=== PATIENT | female | born 1995 | race Caucasian/White ===

== ENCOUNTER → 2018-04-23 13:55 | Emergency (ER) | payer OTHER ==
[~2018-04-23 13:55] MED LIST: Ketorolac INJ* 30 MG/ML 1 ML VIAL IV PUSH ONE; Metoclopramide IV* 5 MG/ML 2 ML VIAL IV ONE; NS 0.9% 1000 ML* 1,000 ML IV ONE; diPHENhydraMINE PO* 50 MG PO ONE
--- NOTE | 2018-04-23 14:13 | ED ---
Complex/Multi-Sys Presentation - HPI Summary HPI Summary: A 22 y/o F referred from [facility] presents to ED with constant, pounding MEREDITH onset 3 days ago. Associated sx: dizziness described as lightheadedness and spinning. Pt states she does not normally have MEREDITH or take IBP. She's been taking IBP for past three days with no relief. Denies neck pain. She notes having a mild cough and sore throat onset one week ago. She states not sleeping well due to the cough. She notes having to take a car to get to class because the walk up the slope was wearing her out. At [facility], her BP was low. Takes Atenolol for anxiety for past 5-6 months. - History Of Current Complaint Chief Complaint: EDFluSymptoms Time Seen by Provider: 04/23/18 14:06 Hx Obtained From: Patient Onset/Duration: Lasting Days, Still Present Timing: Constant Severity Currently: Moderate Severity Initially: Moderate Character: Throbbing - "pounding" Associated Signs And Symptoms: Positive: Dizziness, Headache, Cough. Negative: Other - pos: sore throat (resolved). neg: back pain - Allergies/Home Medications Allergies/Adverse Reactions: Allergies Allergy/AdvReac Type Severity Reaction Status Date / Time No Known Allergies Allergy Verified 04/23/18 18:17 PMH/Surg Hx/FS Hx/Imm Hx Previously Healthy: Yes Sensory History: Denies: Hx Deafness Opthamlomology History: Denies: Hx Legally Blind EENT History: Denies: Hx Deafness Neurological History: Denies: Hx Migraine Infectious Disease History: No Infectious Disease History: Denies: Traveled Outside the [place] in Last 30 Days - Family History Known Family History: Positive: Diabetes, Other - stroke - Social History Occupation: Student Lives: Dormitory/Roommates Alcohol Use: Weekly Hx Substance Use: No Smoking Status (MU): Never Smoked Tobacco Review of Systems Positive: Sore Throat - resolved Positive: Cough - resolved Negative: Arthralgia - neg: neck pain Neurological: Other - pos: dizziness Positive: Headache All Other Systems Reviewed And Are Negative: Yes Physical Exam - Summary Physical Exam Summary: Appearance: The patient is well-nourished in no acute distress and in no acute pain. Skin: The skin is warm and dry and skin color reflects adequate perfusion. HEENT: The head is normocephalic and atraumatic. The pupils are equal and reactive. The conjunctivae are clear and without drainage. Nares are patent and without drainage. Mouth reveals moist mucous membranes and the throat is without erythema and exudate. The external ears are intact. The ear canals are patent and without drainage. The tympanic membranes are intact. Neck: the neck is supple with full range of motion and non-tender. There are no carotid bruits. There is no neck vein distension. Respiratory: Chest is non-tender. Lungs are clear to auscultation and breath sounds are symmetrical and equal. Cardiovascular: Heart is regular rate and rhythm. There is no murmur or rub auscultated. There is no peripheral edema and pulses are symmetrical and equal. Abdomen: The abdomen is soft and non-tender. There are normal bowel sounds heard in all four quadrants and there is no organomegaly palpated. Musculoskeletal: There is no back tenderness noted. Extremities are non-tender with full range of motion. There is good capillary refill. There is no peripheral edema or calf tenderness elicited. Neurological: Patient is alert and oriented to person, place and time. The patient has symmetrical motor strength in all four extremities. Cranial nerves are grossly intact. Deep tendon reflexes are symmetrical and equal in all four extremities. Psychiatric: The patient has an appropriate affect and does not exhibit any anxiety or depression. Triage Information Reviewed: Yes Vital Signs On Initial Exam: Initial Vitals Temp Pulse Resp BP Pulse Ox 98.6 F 83 17 93/57 99 04/23/18 13:56 04/23/18 13:56 04/23/18 13:56 04/23/18 13:56 04/23/18 13:56 Vital Signs Reviewed: Yes - Damon Coma Scale Best Eye Response: 4 - Spontaneous Best Motor Response: 6 - Obeys Commands Best Verbal Response: 5 - Oriented Coma Scale Total: 15 Diagnostics - Vital Signs Vital Signs Temp Pulse Resp BP Pulse Ox 04/23/18 13:56 98.6 F 83 17 93/57 99 - Laboratory Result Diagrams: 04/23/18 15:24 04/23/18 15:24 Lab Statement: Any lab studies that have been ordered have been reviewed, and results considered in the medical decision making process. - CT BRAIN CT CT Interpretation: No Acute Changes - IMPRESSION: No evidence of intracranial mass or hemorrhage is noted. ED provider has reviewed this report. CT Interpretation Completed By: Radiologist Re-Evaluation - Re-Evaluation 1 Re-Evaluation Time: 17:49 Change: Unchanged Comment: Discussing results with pt. Will treat MEREDITH and reassess. Complex Multi-Symp Course/Dx Course Of Treatment: Ms. Spence presented to the emergency department with a headache of 3 days' duration. She was sent over from [place] with a concern that her blood pressure was low. Here her blood pressure is fine and she is nontoxic in appearance. Her laboratory work is unremarkable except for very slightly elevated CRP. CT shows no acute pathology. She was treated with a migraine cocktail of IV Benadryl, ketorolac, Reglan and 1 L normal saline with complete relief of her headache. I think this is a vascular headache I see no evidence for any other pathology. We discussed the efficacy of a lumbar puncture which I think is low and she declined. - Diagnoses Provider Diagnoses: Migraine headache Discharge - Sign-Out/Discharge Documenting (check all that apply): Patient Departure - DC - Discharge Plan Condition: Stable Disposition: HOME Patient Education Materials: Migraine Headache (ED) Referrals: No Primary Care Phys,NOPCP [Primary Care Provider] - [facility] [Outside] Additional Instructions: Please return to the ED if you experience new or worsening symptoms. Follow up with your primary care provider in 2-3 days. - Billing Disposition and Condition Condition: STABLE Disposition: Home - Attestation Statements Document Initiated by Maria Tibe: Yes Documenting Scribe: Marina Shah Provider For Whom Maria Tibe is Documenting (Include Credential): Dr. Sanju Garnett MD Scribe Attestation: I, Marina Shah scribed for Dr. Sanju Garnett MD on 04/23/18 at 1901. Scribe Documentation Reviewed: Yes Provider Attestation: The documentation as recorded by the Marina valles accurately reflects the service I personally performed and the decisions made by me, Dr. Sanju Garnett MD
[2018-04-23 15:31] LABS: ABS Basophils 0.1 10^3/ul (0-0.2); ABS Eosinophils 0.1 10^3/ul (0-0.6); ABS Lymphocytes 1.8 10^3/ul (1.0-4.8); ABS Monocytes 0.5 10^3/ul (0-0.8); ABS Neutrophils 5.7 10^3/ul (1.5-7.7); ABS Nucleated RBC 0 10^3/ul; Eosinophil % 1.7 % (0-6); Hematocrit 38 % (35-47); Hemoglobin 12.9 g/dl (12.0-16.0); Lymphocyte % 22.1 % (25-47); Mean Corpuscular HGB Conc 34 g/dl (31-36); Mean Corpuscular Hemoglobin 29 pg (27-31); Mean Corpuscular Volume 85 fL (80-97); Mean Platelet Volume 7.2 um3 (7.4-10.4); Nucleated Red Blood Cells % 0.1; Platelet Count 198 10^3/ul (150-450); Red Blood Count 4.45 10^6/ul (4.00-5.40); Red Cell Distribution Width 13 % (10.5-15); White Blood Count 8.3 10^3/ul (3.5-10.8)
[2018-04-23 15:49] LABS: EGFR Non-African American 98.5 (>60)
[2018-04-23 16:04] LABS: Urine Red Blood Cell Trace(0-2/hpf) (Absent); Urine White Blood Cell Trace(0-5/hpf) (Absent)
[2018-04-23 16:34] LABS: Urine Appearance Clear; Urine Blood Negative (Negative); Urine Color Yellow; Urine Ketones Negative (Negative); Urine Protein Negative (Negative); Urine Specific Gravity 1.016 (1.010-1.030); Urine Urobilinogen Negative (Negative)
--- NOTE | 2018-04-23 16:35 | RAD ---
Indication: Headaches. CT of the brain performed without IV contrast. Ventricular structures are midline. No midline shift is noted. The extra-axial spaces are unremarkable there is no evidence of intracranial mass or hemorrhage. No other high or low density lesions are identified. Mastoid air cells and paranasal sinuses are clear. IMPRESSION: No evidence of intracranial mass or hemorrhage is noted.
[2018-04-23 22:13] VITALS: BP 118/76
[2018-04-27 16:24] LABS: B garinii/B afzelii PCR Negative (Negative); B. miyamotoi PCR, B Negative (Negative)
== END | disposition home or self-care (01) ==
LOC: ED 13:55
DX: G43.909 Migraine, unspecified, not intractable, without status migrainosus (principal); R42 Dizziness and giddiness; R05 Cough; J02.9 Acute pharyngitis, unspecified
CPT/HCPCS: 36415; 70450; 80053; 81003; 82330; 83605; 84484; 85025; 86140; 87040; 87086; 87476; 87798; 96374; 96375; 99282; A9270-GY; J1885; J2765

== ENCOUNTER 2019-07-25 10:48 | Emergency (ER) | payer OTHER ==
[2019-07-25] MEDS ORDERED: NS 0.9% 1000 ML** 1,000 ML IV ONE ×3 (13:22→15:43)
[2019-07-25] MEDS ORDERED: Ondansetron INJ* 2 MG/ML VIAL IV ONE (13:22)
--- NOTE | 2019-07-25 13:48 | ED ---
Abdominal Pain/Female - HPI Summary HPI Summary: The patient is a 23 y/o F presenting to [facility] accompanied by parents with a chief complaint of nausea, vomiting, and diffuse abdominal cramping onset last night an hour after eating. She reports that her roommate cooked salmon for them last night, and an hour later she became nauseous and began vomiting. Since onset, she has developed diarrhea, abdominal cramping, an erythematous urticarial rash on her face, headache, and head-spinning dizziness. This morning , she attempted to eat plain toast and drink water, but she has been unable to hold liquids. Currently, her symptoms are rated 7/10 in severity. She states that her friend who also ate the salmon has not been experiencing the same symptoms, but the fish was from two different packages. PMHx: panic disorder, depression (didnt take Pristiq today). Nonsmoker, weekly EtOH, no substance use. Medications reviewed. Allergies noted. - History of Current Complaint Chief Complaint: EDNauseaVomitDiarrh Stated Complaint: VOMITING PER PT Time Seen by Provider: 07/25/19 13:21 Hx Obtained From: Patient Onset/Duration: Lasting Hours, Still Present Timing: Constant Severity Initially: Severe Severity Currently: Severe Pain Intensity: 7 Pain Scale Used: 0-10 Numeric Location: Diffuse Radiates: No Character: Cramping Aggravating Factor(s): Food Alleviating Factor(s): Nothing Associated Signs and Symptoms: Positive: Dizzy - head-spinning, Decreased Appetite - unable to hold liquids or solids, Nausea, Vomiting, Diarrhea, Other: - erythematous urticarial rash on face Allergies/Adverse Reactions: Allergies Allergy/AdvReac Type Severity Reaction Status Date / Time No Known Allergies Allergy Verified 07/25/19 13:40 PMH/Surg Hx/FS Hx/Imm Hx Endocrine/Hematology History: Denies: Hx Diabetes Cardiovascular History: Denies: Hx Hypertension, Hx Pacemaker/ICD History: Denies: Hx Renal Disease Sensory History: Denies: Hx Legally Blind, Hx Deafness, Hx Hearing Aid Opthamlomology History: Denies: Hx Legally Blind Neurological History: Denies: Hx Migraine Psychiatric History: Reports: Hx Depression, Hx Panic Disorder - MILD - Surgical History Surgical History: Yes Surgery Procedure, Year, and Place: WISDOM TEETH Infectious Disease History: No Infectious Disease History: Denies: Traveled Outside the [place] in Last 30 Days - Family History Known Family History: Positive: Diabetes, Other - stroke - Social History Alcohol Use: Weekly Hx Substance Use: No Substance Use Type: Reports: None Hx Tobacco Use: No Smoking Status (MU): Never Smoked Tobacco Review of Systems Positive: Abdominal Pain - cramping, Vomiting, Diarrhea, Nausea, Other - unable to hold liquids or solids Positive: Rash - erythematous on face Neurological: Other - head spinning dizziness Positive: Headache All Other Systems Reviewed And Are Negative: Yes Physical Exam - Summary Physical Exam Summary: Constitutional: Well-developed, Well-nourished, Alert. (-) Distressed Skin: Warm, Dry HENT: Normocephalic; Atraumatic Eyes: Conjunctiva normal Neck: Musculoskeletal ROM normal neck. (-) JVD, (-) Stridor, (-) Nuchal rigidity Cardio: Rhythm regular, rate tachycardic, Heart sounds normal; Intact distal pulses; Radial pulses are 2+ and symmetric. (-) Murmur Pulmonary/Chest wall: Effort normal. (-) Respiratory distress, (-) Wheezes, (-) Rales Abd: Soft, (+) mild lower tenderness, (-) Distension, (-) Guarding, (-) Rebound Musculoskeletal: (-) Edema Lymph: (-) Cervical adenopathy Neuro: Alert, Oriented x3 Psych: Mood and affect Normal Triage Information Reviewed: Yes Vital Signs On Initial Exam: Initial Vitals Temp Pulse Resp BP Pulse Ox 98.6 F 105 16 99/70 98 07/25/19 10:51 07/25/19 10:51 07/25/19 10:51 07/25/19 10:51 07/25/19 10:51 Vital Signs Reviewed: Yes Procedures - Sedation Patient Received Moderate/Deep Sedation with Procedure: No Diagnostics - Vital Signs Vital Signs Temp Pulse Resp BP Pulse Ox 07/25/19 12:32 99.0 F 105 16 103/67 99 07/25/19 10:51 98.6 F 105 16 99/70 98 - Laboratory Result Diagrams: 07/25/19 13:49 07/25/19 13:49 Lab Statement: Any lab studies that have been ordered have been reviewed, and results considered in the medical decision making process. - EKG 1223 Cardiac Rate: NL - 95 BPM EKG Rhythm: Sinus Rhythm Summary of EKG Findings: An EKG at 1223 reveals normal sinus rhythm at 95 BPM, nml axis, nml intervals. No STEMI. No acute changes. ED physician has reviewed and interpreted this EKG. Re-Evaluation - Re-Evaluation First Eval Re-Evaluation Time: 14:15 Comment: Patient experiencing headache, will order Toradol Second Eval Re-Evaluation Time: 14:51 Change: Improved Comment: She is feeling better. Third Eval Re-Evaluation Time: 15:30 Change: Unchanged Comment: Patient is feeling better, but remains tachycardic. Fourth Eval Re-Evaluation Time: 16:10 Comment: She is still tachycardic w mild abd pain, discussed CT a/p, patient and parents decline. They wish to try to eat and leave as patient is nervous about interview tmrw in [place] Fifth Eval Re-Evaluation Time: 18:25 Change: Improved - Orthostatics +, given 3rd liter IVF. HR low 100's still but has been eating, wants to leave to go to dinner w parents. Very anxious about work interview tomorrow suspect this could be contributing to tachycardia. Plan for zofran PO. Advised to return if feeling unwell. Abdominal Pain Fem Course/Dx - Course Course Of Treatment: 23 y/o F presents with acute nausea vomiting and diarrhea. DDx includes gastroenteritis, scromboid, appendicitis, pancreatitis, GERD, renal stone, Cholecystitis, Less likely SBO, ectopic, PID, ovarian torsion, fibroids. Exam relatively unremarkable today, no rigidity or suggestions of acute surgical abd. Pt with negative Alegria's on exam. Will provide IVFs and zofran. Lipase to evaluate for pancreatitis. Will obtain cbc to assess for underlying infection. Cmp given reports of vomiting. Serum . Less likely ovarian torsion given location of pain and no focal TTP on exam. Pt denies pelvic pain and vaginal discharge, also with no fever, so less likely PID. Will continue to monitor - Diagnoses Provider Diagnoses: Nausea and vomiting Discharge ED - Sign-Out/Discharge Documenting (check all that apply): Patient Departure - Patient will be discharged home. - Discharge Plan Condition: Improved Disposition: HOME Prescriptions: Ondansetron ODT TAB* [Zofran 4 MG Odt TAB*] 4 mg PO Q8H PRN 4 Days #12 tab.odt PRN Reason: Nausea/Vomiting Patient Education Materials: Acute Nausea and Vomiting (ED) Referrals: [facility] [Provider Group] - 3 Days Additional Instructions: You were seen in the emergency department for nausea, vomiting and dehydration. Please follow up with your primary care doctor in the next 2-3 days and return to the emergency department for worsening pain, vomiting, fevers or concerning symptoms. It was a pleasure taking care of you today. - Billing Disposition and Condition Condition: IMPROVED Disposition: Home - Attestation Statements Document Initiated by Mónica: Yes Documenting Scribe: Fay Markham Provider For Whom Mónica is Documenting (Include Credential): Dr. Praveen Sales MD Scribe Attestation: IFay scribed for Dr. Praveen Sales MD on 07/26/19 at 1708. Scribe Documentation Reviewed: Yes Provider Attestation: The documentation as recorded by the Fay valles accurately reflects the service I personally performed and the decisions made by me, Dr. Praveen Sales MD Status of Scribe Document: Viewed
[2019-07-25 13:55] LABS: ABS Lymphocytes 0.6 10^3/ul (1.0-4.8); ABS Monocytes 0.3 10^3/ul (0-0.8); Eosinophil % 0.4 %; Hematocrit 42 % (35-47); Lymphocyte % 9.2 %; Mean Corpuscular HGB Conc 35 g/dL (31-36); Mean Corpuscular Hemoglobin 30 pg (27-31); Mean Corpuscular Volume 84 fL (80-97); Mean Platelet Volume 7.7 fL (7.4-10.4); Platelet Count 164 10^3/uL (150-450); Red Blood Count 5.04 10^6 /uL (3.70-4.87); Red Cell Distribution Width 12 % (10-15); White Blood Count 6.9 10^3/uL (3.5-10.8)
[2019-07-25] MEDS ORDERED: Ketorolac INJ* 30 MG/ML 1 ML VIAL IV ONE (14:15)
[2019-07-25 14:19] LABS: ALT 19 U/L (7-52); AST 23 U/L (13-39); Albumin 4.3 g/dL (3.2-5.2); Albumin/Globulin Ratio 1.8 (1-3); Alkaline Phosphatase 49 U/L (34-104); Anion Gap 9 mmol/L (2-11); BUN/Creatinine Ratio 18.3 (8-20); Blood Urea Nitrogen 13 mg/dL (6-24); CO2 Carbon Dioxide 27 mmol/L (22-32); Calcium 9.3 mg/dL (8.6-10.3); Chloride 102 mmol/L (101-111); EGFR African American 125.7 (>60); EGFR Non-African American 103.9 (>60); Globulin 2.4 g/dL (2-4); Glucose 83 mg/dL (70-100); Potassium 3.8 mmol/L (3.5-5.0); Sodium 138 mmol/L (135-145); Total Protein 6.7 g/dL (6.4-8.9)
[2019-07-25 14:26] LABS: HCG Pregnancy < 0.60 mIU/mL
[2019-07-25] MEDS ORDERED: hydrOXYzine HCL TAB* 25 MG PO ONE ×2 (17:17→18:16)
[2019-07-25] MEDS ORDERED: Ondansetron ODT TAB* 4 MG PO ONE ×3 (18:17→18:27)
[2019-07-25 18:49] VITALS: BP 127/74
== END 2019-07-25 18:50 | disposition home or self-care (01) ==
LOC: ED 10:48
DX: R11.2 Nausea with vomiting, unspecified (principal); R10.84 Generalized abdominal pain; R42 Dizziness and giddiness; R19.7 Diarrhea, unspecified; L50.9 Urticaria, unspecified; F32.9 Major depressive disorder, single episode, unspecified
CPT/HCPCS: 36415; 80053; 83690; 84702; 85025; 93005; 96361; 96374; 96375; 99284; A9270-GY; J1885; J2405